=== PATIENT | female | born 1950 | race American Indian/Alaskan Native ===

== ENCOUNTER 2023-11-15 12:50 | Inpatient (IN) ==
[2023-11-15] MEDS ORDERED: IOPAMIDOL 100 ML BOTTLE IV ONE (12:51)
[2023-11-15 13:52] LABS: ALT/SGPT < 5 U/L (<40); AST/SGOT 25 U/L (<32); Albumin/Globulin Ratio 1.3 (1.0-2.3); Alkaline Phosphatase 122 U/L (39-117); Bilirubin,Total 0.6 mg/dL (0.1-1.0); Blood Urea Nitrogen 6 mg/dL (8-23); Calcium 8.9 mg/dL (8.6-10.4); Carbon Dioxide 25 mmol/L (22-30); Chloride 103 mmol/L (96-108); Globulin 3.1 gm/dL (2.2-3.7); Glomerular Filtration Rate 85; Glucose 136 mg/dL (70-105); Potassium 3.7 mmol/L (3.3-5.1); Sodium 141 mmol/L (133-145)
[2023-11-15 13:53] LABS: Basophils # (Auto) 0.02 K/mcL (0.00-0.30); Basophils % (Auto) 0.2 % (0.0-2.0); Eosinophils # (Auto) 0.02 K/mcL (0.00-0.70); Eosinophils % (Auto) 0.2 % (0.0-7.0); Hemoglobin 12.8 g/dL (11.2-15.7); Lymphocytes # (Auto) 2.34 K/mcL (1.50-4.80); Lymphocytes % (Auto) 20.9 % (15.5-49.0); Mean Cell Volume 87.4 fL (80.0-100.0); Mean Corpuscular HGB Conc 33.7 g/dL (31.0-36.0); Mean Platelet Volume 9.8 fL (8.8-12.5); Monocytes # (Auto) 0.55 K/mcL (0.10-0.90); Monocytes % (Auto) 4.9 % (1.0-12.0); Neutrophils % (Auto) 73.4 % (38.0-78.0); Platelet Count 289 K/mcL (140-440); RBC 4.35 M/mcL (3.59-5.38); Red Cell Distribution Width 13.5 % (11.5-14.5); WBC 11.2 K/mcL (4.5-11.0)
[2023-11-15 14:46] LABS: Appearance,Urine Clear (Clear); Bilirubin,Urine Negative (Negative); Color,Urine Yellow; Culture Indicated,Urine No; Glucose,Urine (UA) Negative (Negative); Ketones,Urine Negative (Negative); Leukocyte Esterase,Urine Negative /uL (Negative); Nitrate,Urine Negative (Negative); Protein,Urine Negative (Negative); Urine Blood Negative ery/mcL (Negative); Urobilinogen,Urine Normal
[2023-11-15] MEDS: ASPIRIN 325 MG ENTERIC COATED TABLET PO ONE (15:45)
[2023-11-15] MEDS: ATORVASTATIN 40 MG TABLET PO ONE (16:45)
[2023-11-15] MEDS: CLOPIDOGREL 300 MG TABLET PO ONE (16:45)
[2023-11-15] MEDS ORDERED: POTASSIUM CHLORIDE 20 MEQ TABLET PO PRN (19:59)
[2023-11-15] MEDS ORDERED: SENNOSIDES 1 TABLET PO PRN (19:59)
[2023-11-15] MEDS ORDERED: POLYETHYLENE GLYCOL 3350 17 GM PACKET PO PRN (19:59)
[2023-11-15] MEDS ORDERED: MAGNESIUM SULFATE 2 GM/50 ML BAG IV PRN (19:59)
[2023-11-15] MEDS ORDERED: IPRATROPIUM/ALBUTEROL 3 ML AMPUL.NEB NEB PRN (19:59)
[2023-11-15] MEDS ORDERED: ONDANSETRON 4 MG/2 ML VIAL IV PRN (19:59)
[2023-11-15] MEDS ORDERED: POTASSIUM CHLORIDE 40 MEQ in DEXTROSE 5% IN WATER 500 ML IV PRN (19:59)
[2023-11-15] MEDS: ATORVASTATIN 40 MG TABLET PO SCH (20:13)
[2023-11-15] MEDS: 0.9 % SODIUM CHLORIDE 1,000 ML IV ONE (20:29)
[2023-11-15] MEDS: DOCUSATE SODIUM 100 MG CAPSULE PO SCH (20:30)
[2023-11-15 21:14] LABS: HDL Cholesterol 41 mg/dL (>40); LDL Cholesterol,Calculated 104 mg/dL (<100); Non-HDL Cholesterol 128 mg/dL (<130); Triglycerides 125 mg/dL (<150)
[2023-11-15] MEDS: GABAPENTIN 300 MG CAPSULE PO SCH (22:10)
[2023-11-16 06:55] LABS: ALT/SGPT < 5 U/L (<40); AST/SGOT 27 U/L (<32); Albumin 3.5 gm/dL (3.2-5.2); Albumin/Globulin Ratio 1.3 (1.0-2.3); Alkaline Phosphatase 105 U/L (39-117); Bilirubin,Direct 0.2 mg/dL (<0.3); Bilirubin,Total 0.9 mg/dL (0.1-1.0); Blood Urea Nitrogen 9 mg/dL (8-23); Calcium 8.4 mg/dL (8.6-10.4); Carbon Dioxide 23 mmol/L (22-30); Chloride 104 mmol/L (96-108); Globulin 2.7 gm/dL (2.2-3.7); Glomerular Filtration Rate 85; Glucose 113 mg/dL (70-105); Lactate Dehydrogenase 151 U/L (135-225); Phosphorous 3.5 mg/dL (2.5-4.5); Potassium 3.3 mmol/L (3.3-5.1); Sodium 138 mmol/L (133-145); Triglycerides 104 mg/dL (<150); Uric Acid 4.9 mg/dL (2.5-8.0)
[2023-11-16] MEDS: PANTOPRAZOLE 40 MG TABLET PO SCH (07:41)
[2023-11-16] MEDS: POTASSIUM CHLORIDE 20 MEQ TABLET PO PRN (11:30)
[2023-11-16] MEDS: GABAPENTIN 400 MG CAPSULE PO SCH (11:30)
[2023-11-16] MEDS: SERTRALINE 50 MG TABLET PO SCH (11:30)
[2023-11-16] MEDS: ENOXAPARIN 40 MG/0.4 ML SYRINGE SQ SCH (11:31)
[2023-11-16] MEDS: CLOPIDOGREL 75 MG TABLET PO SCH (11:31)
[2023-11-16] MEDS: ASPIRIN 81 MG TAB.CHEW CHEWED SCH (11:31)
[2023-11-16] MEDS: CYCLOBENZAPRINE 10 MG TABLET PO PRN (12:39)
[2023-11-16] MEDS: tiZANidine 4 MG TABLET PO ONE (15:08)
[2023-11-16] MEDS: tiZANidine 4 MG TABLET PO PRN (19:49)
[2023-11-16] MEDS: GABAPENTIN 300 MG CAPSULE PO SCH (20:56)
[2023-11-16] MEDS: 0.9 % SODIUM CHLORIDE 10 ML SYRINGE IV SCH (20:57)
[2023-11-16] MEDS ORDERED: ATORVASTATIN 40 MG TABLET PO SCH ×2 (21:00)
[2023-11-17] MEDS ORDERED: OMEPRAZOLE 20 MG CAPSULE PO SCH (07:30)
[2023-11-17] MEDS: ATORVASTATIN 40 MG TABLET PO SCH (11:23)
[2023-11-17] MEDS: PNEUMOCOCCAL 23-VAL P-SAC VAC 0.5 ML SYRINGE IM ONE (11:25)
== END 2023-11-18 12:36 | DRG 65 ==
LOC: ED 12:50 → ICU 18:47
PROVIDERS: ADMIT Internal Medicine; ATTEND Internal Medicine